=== PATIENT | male | born 1970 | race Two or more races ===

== ENCOUNTER 2017-08-31 17:08 | Emergency (ER) | payer OTHER ==
[~2017-08-31] VITALS: Ht 180.3 cm; Wt 90.7 kg
[~2017-08-31 17:08] MED LIST: CATAFLAM50 MG PO; CELEBREX100 MG PO; KETO10TA2 PO; MOTRIN800 MG PO; ORPH100T PO; SKELAXIN800 MG PO
== END 2017-08-31 18:37 | disposition home or self-care (01) ==
LOC: ER 17:08
DX: M62.838 Other muscle spasm (principal)

== ENCOUNTER → 2017-11-28 | Emergency (ER) | payer OTHER ==
[~2017-11-28] VITALS: Ht 177.8 cm; Wt 86.2 kg
== END | disposition left against medical advice (07) ==
LOC: ER 14:14
DX: Z53.20 Procedure and treatment not carried out because of patient's decision for unspecified reasons (principal)

== ENCOUNTER 2018-05-28 14:50 | Emergency (ER) | payer OTHER ==
[~2018-05-28] VITALS: Ht 177.8 cm; Wt 90.7 kg
== END 2018-05-28 19:26 | disposition home or self-care (01) ==
LOC: ER 14:50
DX: H10.11 Acute atopic conjunctivitis, right eye (principal)

== ENCOUNTER 2019-01-17 13:44 | Emergency (ER) | payer OTHER ==
[~2019-01-17] VITALS: Ht 180.3 cm; Wt 90.7 kg
== END 2019-01-17 15:15 | disposition home or self-care (01) ==
LOC: ER 13:44
DX: K61.1 Rectal abscess (principal)

== ENCOUNTER 2020-03-07 09:49 | Emergency (ER) | payer OTHER ==
[~2020-03-07] VITALS: Ht 177.8 cm; Wt 90.7 kg
[2020-03-07] MEDS ORDERED: NORFLEX100MG PO (12:04)
[2020-03-07] MEDS ORDERED: KETO10TA2 PO (12:04)
== END 2020-03-07 14:57 | disposition home or self-care (01) ==
LOC: ER 09:49
DX: M79.18 Myalgia, other site (principal); M54.2 Cervicalgia

== ENCOUNTER → 2020-03-24 | Emergency (ER) | payer OTHER ==
[~2020-03-24] VITALS: Ht 175.3 cm; Wt 90.7 kg
[~2020-03-24] MED LIST changes: +NORFLEX100MG PO
== END | disposition left against medical advice (07) ==
LOC: ER 09:07
DX: S61.422A Laceration with foreign body of left hand, initial encounter (principal); W45.8XXA Other foreign body or object entering through skin, initial encounter; Y93.89 Activity, other specified; Y92.89 Other specified places as the place of occurrence of the external cause; Y99.8 Other external cause status

== ENCOUNTER 2020-05-01 08:27 | Emergency (ER) | payer OTHER ==
[~2020-05-01] VITALS: Ht 177.8 cm; Wt 93.0 kg
[2020-05-01] MEDS ORDERED: PROVENTIL HFA6.7 GM IH (09:44)
[2020-05-01] MEDS ORDERED: MAXITROL EYE O3.5 GM OP (09:44)
== END 2020-05-01 10:08 | disposition home or self-care (01) ==
LOC: ER 08:27
DX: H00.15 Chalazion left lower eyelid (principal)

== ENCOUNTER 2020-06-25 06:47 | Emergency (ER) | payer OTHER ==
[~2020-06-25] VITALS: Ht 177.8 cm; Wt 90.7 kg
[~2020-06-25 06:47] MED LIST changes: +MAXITROL EYE O3.5 GM OP; +PROVENTIL HFA6.7 GM IH
[2020-06-25] MEDS ORDERED: PEPCID AC20 MG PO (13:09)
[2020-06-25] MEDS ORDERED: INTESTINEX680 M1 PO (13:09)
[2020-06-25] MEDS ORDERED: CIPRO500 MG PO (13:09)
[2020-06-25] MEDS ORDERED: FLAGYL500MG PO (13:09)
== END 2020-06-25 14:49 | disposition home or self-care (01) ==
LOC: ER 06:47
DX: K52.9 Noninfective gastroenteritis and colitis, unspecified (principal); R10.31 Right lower quadrant pain

== ENCOUNTER → 2021-03-18 | Emergency (ER) | payer OTHER ==
[~2021-03-18] VITALS: Ht 177.8 cm; Wt 90.7 kg
[~2021-03-18] MED LIST changes: +CIPRO500 MG PO; +CLOTRIMAZOLE/BE15 GM TOP; +FLAGYL500MG PO; +INTESTINEX680 M1 PO; +PEPCID AC20 MG PO; +PROVENT1 EACH NS; +ZYRTEC10 M3 PO
== END | disposition home or self-care (01) ==
LOC: ER 11:27
DX: B35.6 Tinea cruris (principal)

== ENCOUNTER 2021-06-07 15:36 | Emergency (ER) | payer OTHER ==
[~2021-06-07] VITALS: Ht 175.3 cm; Wt 90.7 kg
== END 2021-06-07 17:23 | disposition home or self-care (01) ==
LOC: ER 15:36
DX: B34.9 Viral infection, unspecified (principal)

== ENCOUNTER 2021-06-13 12:43 | Emergency (ER) | payer OTHER ==
[~2021-06-13] VITALS: Ht 177.8 cm; Wt 90.7 kg
== END 2021-06-13 21:05 | disposition home or self-care (01) ==
LOC: ER 12:43
DX: H66.92 Otitis media, unspecified, left ear (principal); H60.8X2 Other otitis externa, left ear

== ENCOUNTER → 2021-07-09 | Emergency (ER) | payer OTHER ==
[~2021-07-09] VITALS: Ht 180.3 cm; Wt 90.7 kg
== END | disposition left against medical advice (07) ==
LOC: ER 15:32
DX: H66.92 Otitis media, unspecified, left ear (principal)

== ENCOUNTER → 2022-10-05 | Emergency (ER) | payer OTHER | END | disposition left against medical advice (07) | LOC: ER 07:39 | DX: Z53.21 Procedure and treatment not carried out due to patient leaving prior to being seen by health care provider (principal) ==

== ENCOUNTER 2022-10-17 07:33 | Emergency (ER) | payer OTHER ==
[~2022-10-17] VITALS: Ht 180.3 cm; Wt 97.5 kg
== END 2022-10-17 09:30 | disposition home or self-care (01) ==
LOC: ER 07:33
DX: M25.59 Pain in other specified joint (principal)

== ENCOUNTER 2022-12-29 07:25 | Emergency (ER) | payer OTHER ==
[~2022-12-29] VITALS: Ht 180.3 cm; Wt 90.7 kg
== END 2022-12-29 12:34 | disposition home or self-care (01) ==
LOC: ER 07:25
DX: M13.88 Other specified arthritis, other site (principal)

== ENCOUNTER → 2023-01-09 | Emergency (ER) | payer OTHER ==
[~2023-01-09] VITALS: Ht 180.3 cm; Wt 90.7 kg
== END | disposition left against medical advice (07) ==
LOC: ER 07:45
DX: Z53.21 Procedure and treatment not carried out due to patient leaving prior to being seen by health care provider (principal)

== ENCOUNTER 2023-01-26 10:11 | Emergency (ER) | payer OTHER ==
[~2023-01-26] VITALS: Ht 180.3 cm; Wt 90.7 kg
[2023-01-27] MEDS ORDERED: DICLOFENAC POTA50 MG PO (12:22)
[2023-01-27] MEDS ORDERED: NORFLEX100MG PO (12:22)
== END 2023-01-26 14:18 | disposition left against medical advice (07) ==
LOC: ER 10:11
DX: Z53.21 Procedure and treatment not carried out due to patient leaving prior to being seen by health care provider (principal)

== ENCOUNTER 2023-01-27 10:24 | Emergency (ER) | payer OTHER ==
[~2023-01-27] VITALS: Ht 180.3 cm; Wt 90.7 kg
[2023-01-27] MEDS ORDERED: NORFLEX100MG PO (12:22)
[2023-01-27] MEDS ORDERED: DICLOFENAC POTA50 MG PO (12:22)
== END 2023-01-27 13:49 | disposition home or self-care (01) ==
LOC: ER 10:24
DX: S33.5XXA Sprain of ligaments of lumbar spine, initial encounter (principal); X58.XXXA Exposure to other specified factors, initial encounter; Y93.89 Activity, other specified; Y92.89 Other specified places as the place of occurrence of the external cause; Y99.8 Other external cause status

== ENCOUNTER → 2023-07-26 | Emergency (ER) | payer OTHER ==
[~2023-07-26] MED LIST changes: +DICLOFENAC POTA50 MG PO
== END | disposition left against medical advice (07) ==
LOC: ER 09:41
DX: Z53.21 Procedure and treatment not carried out due to patient leaving prior to being seen by health care provider (principal)

== ENCOUNTER 2023-12-28 09:15 | Outpatient (CLI) | payer OTHER ==
[~2023-12-28 09:15] MED LIST changes: +MELATONIN5 M1
== END 2023-12-28 09:23 | disposition home or self-care (01) ==
LOC: SONOGRAMA 09:15
PROVIDERS: ATTEND General Practice
DX: R10.9 Unspecified abdominal pain (principal); N50.819 Testicular pain, unspecified; M54.50 Low back pain, unspecified; F17.210 Nicotine dependence, cigarettes, uncomplicated

== ENCOUNTER 2024-06-07 09:45 | Outpatient (CLI) | payer OTHER | END 2024-06-07 09:54 | disposition home or self-care (01) | LOC: MRI 09:45 | DX: M54.50 Low back pain, unspecified (principal); M51.369 Other intervertebral disc degeneration, lumbar region without mention of lumbar back pain or lower extremity pain | CPT/HCPCS: 72148 ==

== ENCOUNTER 2024-08-27 10:26 | Emergency (ER) | payer OTHER ==
[~2024-08-27] VITALS: Ht 180.3 cm; Wt 95.3 kg
[2024-08-27] MEDS ORDERED: PEPCID AC20 MG PO (11:07)
[2024-08-27] MEDS ORDERED: AMOX1TAB5 PO (11:07)
[2024-08-27] MEDS ORDERED: NORFLEX100MG PO (11:07)
[2024-08-27] MEDS ORDERED: KETOROLAC TROMETHAMINE 60 MG VIAL IM ONE ×2 (11:15→12:09)
[2024-08-27] MEDS ORDERED: CEFTRIAXONE SODIUM 1,000 MG VIAL IM ONE (11:15)
[2024-08-27] MEDS ORDERED: CEFTRIAXONE SODIUM 1,000 MG VIAL ONE (12:09)
== END 2024-08-27 12:38 | disposition home or self-care (01) ==
LOC: ER 10:27
DX: K08.89 Other specified disorders of teeth and supporting structures (principal)